=== PATIENT | male | born 1995 | race Two or more races ===

== ENCOUNTER 2020-05-06 20:00 | Emergency (ER) | payer MEDICAID ==
[~2020-05-06] VITALS: Ht 188 cm; Wt 84.1 kg
[2020-05-06] MEDS ORDERED: OLAN2.5T3 PO (22:20)
[2020-05-06] MEDS ORDERED: LITH300T PO (22:20)
[2020-05-06] MEDS ORDERED: LEVE500T53 PO (22:20)
[2020-05-06] MEDS ORDERED: FISH1CAP27 PO (22:20)
[2020-05-06] MEDS ORDERED: MELA5TAB3 PO (22:20)
[2020-05-06] MEDS ORDERED: PROZ10 PO (22:20)
[2020-05-06] MEDS ORDERED: ESCI-8 PO (22:20)
[2020-05-06] MEDS ORDERED: LORA-1000 PO (22:20)
[2020-05-06] MEDS ORDERED: ALBU8HFA IH (22:20)
[2020-05-06] MEDS ORDERED: QUET200T PO (22:20)
[2020-05-06] MEDS ORDERED: VITA1TAB22 PO (22:20)
[2020-05-06] MEDS ORDERED: ARIP10TA8 PO (22:20)
[2020-05-06] MEDS ORDERED: ZINC220C14 PO (22:20)
[2020-05-06] MEDS ORDERED: CLON0.1T83 PO (22:20)
[2020-05-06 23:05] LABS: AMPHET/METH SCREEN,URINE NEGATIVE (NEGATIVE); BARBITURATE SCREEN, URINE NEGATIVE (NEGATIVE); BENZODIAZEPINES SCREEN,URINE NEGATIVE (NEGATIVE); CANNABINOID SCREEN,URINE NEGATIVE (NEGATIVE); COCAINE SCREEN,URINE NEGATIVE (NEGATIVE); METHADONE SCREEN, URINE NEGATIVE (NEGATIVE); OPIATE SCREEN,URINE NEGATIVE (NEGATIVE)
[2020-05-06 23:06] LABS: PHENCYCLIDINE SCREEN,URINE NEGATIVE (NEGATIVE)
[2020-05-06 23:14] LABS: BASOPHILS % (AUTO) 0.4 % (0.0-2.0); EOSINOPHILS % (AUTO) 1.3 % (1.0-6.0); HEMATOCRIT 42.3 % (41-53); HEMOGLOBIN 14.2 g/dL (13.5-17.5); LYMPHOCYTES # (AUTO) 2.6 K/uL (1.0-4.8); LYMPHOCYTES % (AUTO) 29.7 % (22.0-44.0); MEAN CORPUSCULAR HEMOGLOBIN 30.8 pg (26.0-34.0); MEAN CORPUSCULAR HGB CONC 33.6 G/dL (31.0-37.0); MEAN CORPUSCULAR VOLUME 92 fL (80-100); MONOCYTES # (AUTO) 0.6 K/uL (0.1-1.0); MONOCYTES % (AUTO) 7.2 % (2.0-9.0); NEUTROPHILS # (AUTO) 5.4 K/uL (1.8-7.7); NEUTROPHILS % (AUTO) 61.4 % (40.0-70.0); PLATELET COUNT (AUTO) 212 K/uL (150-450); RED BLOOD CELL COUNT(AUTO) 4.62 MIL/uL (4.50-5.90); RED CELL DISTRIBUTION WIDTH 12.8 % (11.5-14.5)
[2020-05-06 23:23] LABS: ANION GAP 9 mmol/L (8-16); CALCIUM, TOTAL 9.2 mg/dL (8.8-10.5); CARBON DIOXIDE 27 mmol/L (22-29); CHLORIDE 104 mmol/L (98-107); GLOMERULAR FILTR. RATE CALC > 60 mL/min (>60); GLUCOSE,RANDOM 98 mg/dL (70-110); POTASSIUM 3.5 mmol/L (3.5-5.1); SODIUM SERUM 140 mmol/L (136-145); UREA NITROGEN, BLOOD 11 mg/dL (7-18)
[2020-05-06 23:30] LABS: ALANINE AMINOTRANSFERASE 39 U/L (12-78); ALBUMIN 3.9 g/dL (3.4-5.0); ALKALINE PHOSPHATASE 56 U/L (46-116); ASPARTATE AMINOTRANSFERASE 18 U/L (15-37); BILIRUBIN,TOTAL 1.4 mg/dL (0.1-1.0); TOTAL PROTEIN, SERUM 6.6 g/dL (6.4-8.2)
[2020-05-07 08:03] VITALS: BP 102/60
== END 2020-05-07 08:08 | disposition home or self-care (01) ==
LOC: EMS 20:03
DX: R62.50 Unspecified lack of expected normal physiological development in childhood (principal); R45.851 Suicidal ideations; Z88.8 Allergy status to other drugs, medicaments and biological substances
CPT/HCPCS: 36415; 80053; 80307; 85025; 99285; G0480

== ENCOUNTER 2021-03-01 12:11 | Inpatient (IN) | payer MEDICARE, MEDICAID ==
[~2021-03-01] VITALS: Ht 188 cm; Wt 106.0 kg
[~2021-03-01 12:11] MED LIST: ALBU8HFA IH; ARIP10TA38 PO; CLON0.1T2 PO; ESCI-8 PO; FISH1CAP27 PO; FLUO10CA24 PO; LEVE500T53 PO; LITH300T PO; LORA-1000 PO; MELA5TAB3 PO; OLAN2.5T3 PO; QUET200T PO; VITA1TAB22 PO; ZINC220C14 PO
[2021-03-01 16:38] LABS: BASOPHILS % (AUTO) 0.7 % (0.0-2.0); EOSINOPHILS % (AUTO) 2.6 % (1.0-6.0); HEMOGLOBIN 14.3 g/dL (13.5-17.5); LYMPHOCYTES # (AUTO) 1.7 K/uL (1.0-4.8); LYMPHOCYTES % (AUTO) 27.9 % (22.0-44.0); MEAN CORPUSCULAR HEMOGLOBIN 30.6 pg (26.0-34.0); MEAN CORPUSCULAR HGB CONC 33.2 G/dL (31.0-37.0); MEAN CORPUSCULAR VOLUME 92 fL (80-100); MONOCYTES # (AUTO) 0.6 K/uL (0.1-1.0); MONOCYTES % (AUTO) 10.2 % (2.0-9.0); NEUTROPHILS # (AUTO) 3.6 K/uL (1.8-7.7); NEUTROPHILS % (AUTO) 58.6 % (40.0-70.0); PLATELET COUNT (AUTO) 247 K/uL (150-450); RED BLOOD CELL COUNT(AUTO) 4.67 MIL/uL (4.50-5.90); RED CELL DISTRIBUTION WIDTH 12.9 % (11.5-14.5)
[2021-03-01 16:40] LABS: ANION GAP 8 mmol/L (8-16); CALCIUM, TOTAL 8.9 mg/dL (8.8-10.5); CARBON DIOXIDE 27 mmol/L (22-29); CHLORIDE 106 mmol/L (98-107); CREATININE 1.04 mg/dL (0.60-1.30); GLOMERULAR FILTR. RATE CALC > 60 mL/min (>60); GLUCOSE,RANDOM 95 mg/dL (70-110); SODIUM SERUM 141 mmol/L (136-145); UREA NITROGEN, BLOOD 8 mg/dL (7-18)
[2021-03-01 16:45] LABS: ALANINE AMINOTRANSFERASE 50 U/L (12-78); ALBUMIN 4.1 g/dL (3.4-5.0); ALKALINE PHOSPHATASE 75 U/L (46-116); ASPARTATE AMINOTRANSFERASE 19 U/L (15-37); BILIRUBIN,TOTAL 0.7 mg/dL (0.1-1.0); TOTAL PROTEIN, SERUM 7.7 g/dL (6.4-8.2)
[2021-03-01] MEDS ORDERED: QUEtiapine FUMARATE 100 MG TABLET PO ONE (16:45)
[2021-03-01 16:56] LABS: LITHIUM 1.08 mmol/L (0.60-1.20)
[2021-03-01] MEDS ORDERED: LORazepam 1 MG TABLET PO ONE (17:00)
[2021-03-01] MEDS ORDERED: DiphenhydrAMINE HCL 50 MG/ML VIAL IM ONE (17:30)
[2021-03-01] MEDS ORDERED: LORazepam 2 MG/ML VIAL IM ONE (17:30)
[2021-03-01] MEDS ORDERED: HALOPERIDOL LACTATE 5 MG/ML VIAL IM ONE (17:30)
[2021-03-01] MEDS ORDERED: PROMETHAZINE HCL 25 MG TABLET PO PRN (17:45)
[2021-03-01] MEDS ORDERED: TUBERCULIN, PURIFIED PROTEIN DERIVATIVE 5 TU/0.1 ML SYRINGE ID ONE (17:45)
[2021-03-01] MEDS ORDERED: ZOLPIDEM TARTRATE 10 MG TABLET PO PRN (17:45)
[2021-03-01] MEDS ORDERED: OLANZapine 5 MG RAPDIS TABLET PO PRN (17:45)
[2021-03-01] MEDS ORDERED: GuaiFENesin/D-METHORPHAN [SUGAR-FREE] 200-20MG/10 ML SYRUP UDCUP PO PRN (17:45)
[2021-03-01 19:50] LABS: COVID AG,FIA SOURCE NASOPHARYNGEAL
[2021-03-01] MEDS ORDERED: LITHIUM CARBONATE 450 MG ER TABLET PO SCH (21:00)
[2021-03-01] MEDS: OLANZapine 5 MG RAPDIS TABLET PO SCH (21:00)
[2021-03-01] MEDS: MELATONIN 5 MG TABLET PO SCH (21:00)
[2021-03-01] MEDS: THIAMINE 100 MG TABLET PO SCH (21:00)
[2021-03-01] MEDS: GuanFACINE HCL 1 MG TABLET PO SCH (21:23)
[2021-03-02 00:13] VITALS: BP 117/74
[2021-03-02] MEDS ORDERED: CloNIDine HCL 0.1 MG TABLET PO PRN (07:00)
[2021-03-02 07:50] LABS: LITHIUM 0.91 mmol/L (0.60-1.20)
[2021-03-02 07:58] LABS: HEMOGLOBIN A1C 4.8 % (3.8-5.6)
[2021-03-02 08:03] LABS: CHOL/HDL RATIO 5.6 (4.2-7.3); FREE T4 (FREE THYROXINE) 0.96 ng/dL (0.76-1.46); THYROID STIMULATING HORMONE 1.83 uIU/mL (0.36-3.74)
[2021-03-02] MEDS: HydrOXYzine PAMOATE 50 MG CAPSULE PO PRN ×2 (08:10→16:45)
[2021-03-02 08:32] VITALS: BP 136/76
[2021-03-02] MEDS: FOLIC ACID 1 MG TABLET PO SCH (08:48)
[2021-03-02] MEDS: GuanFACINE HCL 1 MG TABLET PO SCH ×2 (08:48→12:43)
[2021-03-02] MEDS: THIAMINE 100 MG TABLET PO SCH ×2 (08:48→16:45)
[2021-03-02] MEDS: OMEGA-3/DHA/EPA/FISH OIL 1,000 MG CAPSULE PO SCH (08:48)
[2021-03-02] MEDS: MULTIVITAMINS WITH MINERALS, THERAPEUTIC TABLET PO SCH (08:48)
[2021-03-02] MEDS: ZINC SULFATE 220 MG CAPSULE PO SCH ×2 (08:48→09:00)
[2021-03-02] MEDS: OLANZapine 5 MG RAPDIS TABLET PO SCH ×2 (08:49→12:43)
[2021-03-02] MEDS ORDERED: LevETIRAcetam 500 MG TABLET PO SCH (09:00)
[2021-03-02] MEDS ORDERED: FLUoxetine HCL 20 MG CAPSULE PO SCH (09:00)
[2021-03-02] MEDS ORDERED: QUEtiapine FUMARATE 25 MG TABLET PO PRN (15:15)
[2021-03-02 16:05] VITALS: BP 111/72
[2021-03-02] MEDS: LITHIUM CARBONATE 300 MG CAPSULE PO SCH (16:44)
[2021-03-02] MEDS: ClonazePAM 1 MG TABLET PO SCH (16:44)
[2021-03-02] MEDS: PROPRANOLOL HCL 10 MG TABLET PO SCH (16:44)
[2021-03-02] MEDS: QUEtiapine FUMARATE 100 MG TABLET PO SCH ×2 (16:45→20:34)
[2021-03-02] MEDS: GABAPENTIN 300 MG CAPSULE PO SCH ×2 (16:45→20:34)
[2021-03-02] MEDS ORDERED: LITHIUM CARBONATE 300 MG CAPSULE PO SCH (17:00)
[2021-03-02] MEDS: MELATONIN 5 MG TABLET PO SCH (20:33)
[2021-03-03 05:59] VITALS: BP 125/75
[2021-03-03 08:19] VITALS: BP 142/92
[2021-03-03] MEDS: HydrOXYzine PAMOATE 50 MG CAPSULE PO PRN (08:30)
[2021-03-03] MEDS: MULTIVITAMINS WITH MINERALS, THERAPEUTIC TABLET PO SCH (08:45)
[2021-03-03] MEDS: QUEtiapine FUMARATE 100 MG TABLET PO SCH ×3 (08:45→16:53)
[2021-03-03] MEDS: ZINC SULFATE 220 MG CAPSULE PO SCH (08:45)
[2021-03-03] MEDS: LITHIUM CARBONATE 300 MG CAPSULE PO SCH ×2 (08:45→16:56)
[2021-03-03] MEDS: OMEGA-3/DHA/EPA/FISH OIL 1,000 MG CAPSULE PO SCH (08:45)
[2021-03-03] MEDS: ClonazePAM 1 MG TABLET PO SCH ×3 (08:45→16:50)
[2021-03-03] MEDS: FOLIC ACID 1 MG TABLET PO SCH (08:45)
[2021-03-03] MEDS: THIAMINE 100 MG TABLET PO SCH ×2 (08:45→16:51)
[2021-03-03] MEDS: PROPRANOLOL HCL 10 MG TABLET PO SCH ×3 (08:45→16:54)
[2021-03-03] MEDS: GABAPENTIN 300 MG CAPSULE PO SCH ×4 (08:45→20:28)
[2021-03-03 16:16] VITALS: BP 105/75
[2021-03-03] MEDS: OXcarbazepine 300 MG TABLET PO SCH (16:54)
[2021-03-03] MEDS: MELATONIN 5 MG TABLET PO SCH (20:28)
[2021-03-04 06:09] VITALS: BP 109/54
[2021-03-04] MEDS: THIAMINE 100 MG TABLET PO SCH ×2 (08:29→16:15)
[2021-03-04] MEDS: MULTIVITAMINS WITH MINERALS, THERAPEUTIC TABLET PO SCH (08:29)
[2021-03-04] MEDS: OXcarbazepine 300 MG TABLET PO SCH ×3 (08:30→16:16)
[2021-03-04] MEDS: OMEGA-3/DHA/EPA/FISH OIL 1,000 MG CAPSULE PO SCH (08:31)
[2021-03-04] MEDS: LITHIUM CARBONATE 300 MG CAPSULE PO SCH ×2 (08:31→16:15)
[2021-03-04] MEDS: ClonazePAM 1 MG TABLET PO SCH ×3 (08:31→16:15)
[2021-03-04] MEDS: PROPRANOLOL HCL 10 MG TABLET PO SCH ×3 (08:31→16:15)
[2021-03-04] MEDS: FOLIC ACID 1 MG TABLET PO SCH (08:32)
[2021-03-04] MEDS: GABAPENTIN 300 MG CAPSULE PO SCH ×4 (08:32→20:01)
[2021-03-04] MEDS: QUEtiapine FUMARATE 100 MG TABLET PO SCH ×2 (08:33→12:34)
[2021-03-04 08:58] VITALS: BP 109/60
[2021-03-04] MEDS: ZINC SULFATE 220 MG CAPSULE PO SCH (09:50)
[2021-03-04 16:06] VITALS: BP 109/63
[2021-03-04] MEDS: QUEtiapine FUMARATE 200 MG TABLET PO SCH (16:17)
[2021-03-04] MEDS: MELATONIN 5 MG TABLET PO SCH (20:01)
[2021-03-05 05:38] VITALS: BP 130/80
[2021-03-05] MEDS ORDERED: GABA-1181 PO (06:42)
[2021-03-05] MEDS ORDERED: CLON-595 PO (06:42)
[2021-03-05] MEDS ORDERED: MELA5TAB3 PO (06:43)
[2021-03-05] MEDS ORDERED: QUET200T30 PO (06:43)
[2021-03-05] MEDS ORDERED: OMEG-135 PO (06:43)
[2021-03-05] MEDS ORDERED: OXCA300T57 PO (06:43)
[2021-03-05] MEDS ORDERED: LITH300C3 PO (06:43)
[2021-03-05] MEDS ORDERED: PROP10TA72 PO (06:43)
[2021-03-05] MEDS: HydrOXYzine PAMOATE 50 MG CAPSULE PO PRN (08:30)
[2021-03-05] MEDS: QUEtiapine FUMARATE 200 MG TABLET PO SCH ×2 (08:36→12:45)
[2021-03-05] MEDS: FOLIC ACID 1 MG TABLET PO SCH (08:36)
[2021-03-05] MEDS: ClonazePAM 1 MG TABLET PO SCH ×2 (08:36→12:45)
[2021-03-05] MEDS: GABAPENTIN 300 MG CAPSULE PO SCH ×2 (08:36→12:45)
[2021-03-05] MEDS: OMEGA-3/DHA/EPA/FISH OIL 1,000 MG CAPSULE PO SCH (08:36)
[2021-03-05] MEDS: MULTIVITAMINS WITH MINERALS, THERAPEUTIC TABLET PO SCH (08:36)
[2021-03-05] MEDS: LITHIUM CARBONATE 300 MG CAPSULE PO SCH (08:36)
[2021-03-05] MEDS: OXcarbazepine 300 MG TABLET PO SCH (08:36)
[2021-03-05] MEDS: PROPRANOLOL HCL 10 MG TABLET PO SCH ×2 (08:36→12:45)
[2021-03-05] MEDS: THIAMINE 100 MG TABLET PO SCH (08:37)
[2021-03-05] MEDS: ZINC SULFATE 220 MG CAPSULE PO SCH (08:37)
[2021-03-05 08:59] VITALS: BP 106/61
== END 2021-03-05 14:12 | disposition home or self-care (01) | DRG 885 ==
LOC: EMS 12:11 → B3A 17:42
PROVIDERS: ADMIT Psychiatry & Neurology Psychiatry; ATTEND Psychiatry & Neurology Psychiatry
DX: F31.4 Bipolar disorder, current episode depressed, severe, without psychotic features (principal); R45.851 Suicidal ideations; F84.0 Autistic disorder; Z20.822 Contact with and (suspected) exposure to COVID-19; G47.00 Insomnia, unspecified; K59.00 Constipation, unspecified; E66.9 Obesity, unspecified; E78.5 Hyperlipidemia, unspecified; F90.9 Attention-deficit hyperactivity disorder, unspecified type
CPT/HCPCS: 80053; 80061; 80178; 83036; 84439; 84443; 85025; 86592; 99291; A9575; G0480; J1200; J1630; J2060

== ENCOUNTER 2021-03-07 14:05 | Emergency (ER) | payer MEDICARE, MEDICAID ==
[~2021-03-07] VITALS: Ht 188 cm; Wt 81.8 kg
[~2021-03-07 14:05] MED LIST changes: -ALBU8HFA IH; -ARIP10TA38 PO; +CLON-595 PO; -CLON0.1T2 PO; -ESCI-8 PO; -FISH1CAP27 PO; -FLUO10CA24 PO; +GABA-1181 PO; +LITH300C3 PO; -LITH300T PO; -LORA-1000 PO; -OLAN2.5T3 PO; +OMEG-135 PO; +OXCA300T57 PO; +PROP10TA72 PO; +QUET200T30 PO; -VITA1TAB22 PO; -ZINC220C14 PO
[2021-03-07 14:06] VITALS: BP 109/58
== END 2021-03-07 15:38 | disposition home or self-care (01) ==
LOC: EMS 14:05
DX: S30.812A Abrasion of penis, initial encounter (principal); F84.0 Autistic disorder; Z88.8 Allergy status to other drugs, medicaments and biological substances; Z79.899 Other long term (current) drug therapy; X58.XXXA Exposure to other specified factors, initial encounter; Y93.89 Activity, other specified; Y92.89 Other specified places as the place of occurrence of the external cause; Y99.8 Other external cause status
CPT/HCPCS: 99281; Z7502

== ENCOUNTER 2021-03-07 18:42 | Emergency (ER) | payer MEDICARE, MEDICAID ==
[~2021-03-07] VITALS: Ht 188 cm; Wt 81.8 kg
[2021-03-07 18:44] VITALS: BP 126/84
== END 2021-03-07 22:25 | disposition left against medical advice (07) ==
LOC: EMS 18:48
DX: F98.9 Unspecified behavioral and emotional disorders with onset usually occurring in childhood and adolescence (principal); F84.0 Autistic disorder; Z88.8 Allergy status to other drugs, medicaments and biological substances; Z79.899 Other long term (current) drug therapy
CPT/HCPCS: 99281; Z7502

== ENCOUNTER 2021-03-15 14:36 | Emergency (ER) | payer MEDICARE, MEDICAID ==
[~2021-03-15] VITALS: Ht 188 cm; Wt 93.2 kg
[2021-03-15 16:56] LABS: AMPHET/METH SCREEN,URINE NEGATIVE (NEGATIVE); BARBITURATE SCREEN, URINE NEGATIVE (NEGATIVE); BENZODIAZEPINES SCREEN,URINE NEGATIVE (NEGATIVE); CANNABINOID SCREEN,URINE NEGATIVE (NEGATIVE); COCAINE SCREEN,URINE NEGATIVE (NEGATIVE); METHADONE SCREEN, URINE NEGATIVE (NEGATIVE); OPIATE SCREEN,URINE NEGATIVE (NEGATIVE)
[2021-03-15 16:58] LABS: PHENCYCLIDINE SCREEN,URINE NEGATIVE (NEGATIVE)
[2021-03-15] MEDS ORDERED: QUEtiapine FUMARATE 100 MG TABLET PO ONE (17:00)
[2021-03-15] MEDS ORDERED: LORazepam 2 MG TABLET PO ONE (17:00)
[2021-03-15 17:02] LABS: BASOPHILS % (AUTO) 0.8 % (0.0-2.0); HEMATOCRIT 45.9 % (41-53); HEMOGLOBIN 15.2 g/dL (13.5-17.5); LYMPHOCYTES # (AUTO) 1.5 K/uL (1.0-4.8); LYMPHOCYTES % (AUTO) 29.7 % (22.0-44.0); MEAN CORPUSCULAR HEMOGLOBIN 30.5 pg (26.0-34.0); MEAN CORPUSCULAR VOLUME 93 fL (80-100); MONOCYTES # (AUTO) 0.5 K/uL (0.1-1.0); MONOCYTES % (AUTO) 8.7 % (2.0-9.0); NEUTROPHILS # (AUTO) 3.1 K/uL (1.8-7.7); NEUTROPHILS % (AUTO) 58.8 % (40.0-70.0); PLATELET COUNT (AUTO) 245 K/uL (150-450); RED BLOOD CELL COUNT(AUTO) 4.96 MIL/uL (4.50-5.90)
[2021-03-15 17:15] LABS: ANION GAP 9 mmol/L (8-16); CALCIUM, TOTAL 9.4 mg/dL (8.8-10.5); CARBON DIOXIDE 28 mmol/L (22-29); CHLORIDE 105 mmol/L (98-107); CREATININE 0.78 mg/dL (0.60-1.30); GLOMERULAR FILTR. RATE CALC > 60 mL/min (>60); GLUCOSE,RANDOM 95 mg/dL (70-110); POTASSIUM 4.3 mmol/L (3.5-5.1); SODIUM SERUM 142 mmol/L (136-145); UREA NITROGEN, BLOOD 7 mg/dL (7-18)
[2021-03-15 17:16] LABS: LITHIUM 0.49 mmol/L (0.60-1.20)
[2021-03-15 17:22] LABS: ALANINE AMINOTRANSFERASE 58 U/L (12-78); ALBUMIN 4.4 g/dL (3.4-5.0); ALKALINE PHOSPHATASE 81 U/L (46-116); ASPARTATE AMINOTRANSFERASE 26 U/L (15-37); BILIRUBIN,TOTAL 0.8 mg/dL (0.1-1.0); TOTAL PROTEIN, SERUM 8.2 g/dL (6.4-8.2)
[2021-03-15 17:51] LABS: COVID AG,FIA SOURCE NASOPHARYNGEAL
[2021-03-15 19:45] VITALS: BP 129/68
== END 2021-03-15 20:35 | disposition home or self-care (01) ==
LOC: EMS 14:36
DX: F43.0 Acute stress reaction (principal); F84.0 Autistic disorder; F41.9 Anxiety disorder, unspecified; F32.9 Major depressive disorder, single episode, unspecified; Z20.822 Contact with and (suspected) exposure to COVID-19
CPT/HCPCS: 36415; 80053; 80178; 80307; 85025; 87426; 99283; G0480

== ENCOUNTER 2021-05-31 14:17 | Inpatient (IN) | payer MEDICARE, MEDICAID ==
[~2021-05-31] VITALS: Ht 188 cm; Wt 106.8 kg
[~2021-05-31 14:17] MED LIST changes: +LEVE500T20 PO; -LEVE500T53 PO; -MELA5TAB3 PO; +MELA5TAB40 PO
[2021-05-31] MEDS ORDERED: DiphenhydrAMINE HCL 50 MG/ML VIAL IM ONE (14:45)
[2021-05-31] MEDS ORDERED: HALOPERIDOL LACTATE 5 MG/ML VIAL IM ONE (14:45)
[2021-05-31] MEDS ORDERED: LORazepam 2 MG/ML VIAL IM ONE (14:45)
[2021-05-31 15:10] LABS: BASOPHILS % (AUTO) 0.4 % (0.0-2.0); EOSINOPHILS % (AUTO) 1.3 % (1.0-6.0); HEMOGLOBIN 14.1 g/dL (13.5-17.5); LYMPHOCYTES # (AUTO) 1.4 K/uL (1.0-4.8); LYMPHOCYTES % (AUTO) 18.5 % (22.0-44.0); MEAN CORPUSCULAR HGB CONC 33.5 G/dL (31.0-37.0); MEAN CORPUSCULAR VOLUME 90 fL (80-100); MONOCYTES # (AUTO) 0.7 K/uL (0.1-1.0); MONOCYTES % (AUTO) 8.6 % (2.0-9.0); NEUTROPHILS # (AUTO) 5.4 K/uL (1.8-7.7); NEUTROPHILS % (AUTO) 71.2 % (40.0-70.0); PLATELET COUNT (AUTO) 233 K/uL (150-450); RED BLOOD CELL COUNT(AUTO) 4.69 MIL/uL (4.50-5.90); RED CELL DISTRIBUTION WIDTH 13.1 % (11.5-14.5)
[2021-05-31 15:13] LABS: ANION GAP 10 mmol/L (8-16); CALCIUM, TOTAL 9.4 mg/dL (8.8-10.5); CARBON DIOXIDE 28 mmol/L (22-29); CHLORIDE 105 mmol/L (98-107); CREATININE 1.06 mg/dL (0.60-1.30); GLOMERULAR FILTR. RATE CALC > 60 mL/min (>60); GLUCOSE,RANDOM 95 mg/dL (70-110); POTASSIUM 3.7 mmol/L (3.5-5.1); SODIUM SERUM 143 mmol/L (136-145); UREA NITROGEN, BLOOD 12 mg/dL (7-18)
[2021-05-31 15:19] LABS: LITHIUM 0.48 mmol/L (0.60-1.20)
[2021-05-31 15:20] LABS: ALANINE AMINOTRANSFERASE 49 U/L (12-78); ALBUMIN 4.1 g/dL (3.4-5.0); ALKALINE PHOSPHATASE 73 U/L (46-116); ASPARTATE AMINOTRANSFERASE 22 U/L (15-37); BILIRUBIN,TOTAL 1.1 mg/dL (0.1-1.0); TOTAL PROTEIN, SERUM 7.7 g/dL (6.4-8.2)
[2021-05-31 15:58] LABS: COVID AG,FIA SOURCE NASOPHARYNGEAL
[2021-05-31 17:28] LABS: AMPHET/METH SCREEN,URINE NEGATIVE (NEGATIVE); BARBITURATE SCREEN, URINE NEGATIVE (NEGATIVE); BENZODIAZEPINES SCREEN,URINE NEGATIVE (NEGATIVE); CANNABINOID SCREEN,URINE NEGATIVE (NEGATIVE); COCAINE SCREEN,URINE NEGATIVE (NEGATIVE); METHADONE SCREEN, URINE NEGATIVE (NEGATIVE); OPIATE SCREEN,URINE NEGATIVE (NEGATIVE)
[2021-05-31 17:35] LABS: PHENCYCLIDINE SCREEN,URINE NEGATIVE (NEGATIVE)
[2021-05-31] MEDS ORDERED: CLON-595 PO (18:24)
[2021-05-31] MEDS ORDERED: OXCA300T57 PO (18:24)
[2021-05-31] MEDS ORDERED: GABA-1181 PO (18:24)
[2021-05-31] MEDS ORDERED: BENZ0.5T44 PO (18:24)
[2021-05-31] MEDS ORDERED: LITH300T PO (18:24)
[2021-05-31] MEDS ORDERED: PALI39DI IM (18:24)
[2021-05-31] MEDS ORDERED: MELA5TAB40 PO (18:24)
[2021-05-31] MEDS ORDERED: HALOPERIDOL 5 MG TABLET PO PRN (20:15)
[2021-05-31 21:57] VITALS: BP 108/68
[2021-05-31] MEDS: LORazepam 2 MG TABLET PO PRN (22:53)
[2021-05-31] MEDS: ZOLPIDEM TARTRATE 10 MG TABLET PO PRN (22:53)
[2021-05-31] MEDS ORDERED: INFLUENZA VIRUS VACCINE QVS 2021-22 (6MO+)/PF 60 MCG/0.5 ML SYRINGE IM. ONE (23:45)
[2021-05-31] MEDS ORDERED: PNEUMOCOCCAL VACCINE POLYVALENT 0.5 ML VIAL [PPSV23] IM. ONE (23:45)
[2021-06-01 00:18] VITALS: BP 110/70
[2021-06-01 07:37] LABS: CHOL/HDL RATIO 5.1 (4.2-7.3)
[2021-06-01] MEDS: LITHIUM CARBONATE 300 MG CAPSULE PO SCH ×2 (09:40→16:51)
[2021-06-01 13:10] VITALS: BP 127/65
[2021-06-01] MEDS: LORazepam 2 MG TABLET PO PRN (13:48)
[2021-06-01 16:16] VITALS: BP 130/76
[2021-06-01] MEDS ORDERED: IBUPROFEN 600 MG TABLET PO PRN (18:45)
[2021-06-01] MEDS ORDERED: ONDANSETRON HCL 4 MG TABLET PO PRN (18:45)
[2021-06-01] MEDS ORDERED: BACITRACIN 28 GM OINTMENT TP PRN (18:45)
[2021-06-01] MEDS ORDERED: BENZOCAINE/MENTHOL LOZENGE PO PRN (18:45)
[2021-06-01] MEDS ORDERED: MAGNESIUM HYDROXIDE SUSPENSION 30 ML UDCUP PO PRN (18:45)
[2021-06-01] MEDS ORDERED: ALBUTEROL SULFATE HFA 90 MCG/PUFF 8 GM INHALER IH PRN (18:45)
[2021-06-01] MEDS ORDERED: ACETAMINOPHEN 325 MG TABLET PO PRN (18:45)
[2021-06-01] MEDS ORDERED: MAG HYDROX/AL HYDROX/SIMETH ES 30 ML SUSPENSION UDCUP PO PRN (18:45)
[2021-06-01] MEDS ORDERED: OMEPRAZOLE 20 MG CAPSULE PO PRN (18:45)
[2021-06-01] MEDS ORDERED: DOCUSATE SODIUM 100 MG CAPSULE PO PRN (18:45)
[2021-06-01] MEDS ORDERED: CloNIDine HCL 0.1 MG TABLET PO PRN (18:45)
[2021-06-01] MEDS ORDERED: PETROLATUM,WHITE 28 GM JELLY TP PRN (18:45)
[2021-06-01] MEDS ORDERED: LOPERAMIDE HCL 2 MG CAPSULE PO PRN (18:45)
[2021-06-01] MEDS: OXcarbazepine 300 MG TABLET PO SCH (19:10)
[2021-06-01] MEDS: LevETIRAcetam 500 MG TABLET PO SCH (19:10)
[2021-06-01] MEDS: GABAPENTIN 300 MG CAPSULE PO SCH (20:40)
[2021-06-01] MEDS: MELATONIN 5 MG TABLET PO SCH (20:41)
[2021-06-02 00:28] VITALS: BP 108/64
[2021-06-02 08:19] VITALS: BP 132/79
[2021-06-02] MEDS: PROPRANOLOL HCL 10 MG TABLET PO SCH ×3 (08:28→16:30)
[2021-06-02] MEDS: OMEGA-3/DHA/EPA/FISH OIL 1,000 MG CAPSULE PO SCH (08:29)
[2021-06-02] MEDS: OXcarbazepine 300 MG TABLET PO SCH ×2 (08:29→16:31)
[2021-06-02] MEDS: GABAPENTIN 300 MG CAPSULE PO SCH ×4 (08:29→20:54)
[2021-06-02] MEDS: LevETIRAcetam 500 MG TABLET PO SCH ×2 (08:30→16:29)
[2021-06-02] MEDS: LITHIUM CARBONATE 300 MG CAPSULE PO SCH ×2 (08:30→16:30)
[2021-06-02 16:21] VITALS: BP 102/61
[2021-06-02] MEDS: LORazepam 2 MG TABLET PO PRN (16:31)
[2021-06-02] MEDS: MELATONIN 5 MG TABLET PO SCH (20:54)
[2021-06-03 00:34] VITALS: BP 125/72
[2021-06-03] MEDS: OMEGA-3/DHA/EPA/FISH OIL 1,000 MG CAPSULE PO SCH (08:16)
[2021-06-03] MEDS: LITHIUM CARBONATE 300 MG CAPSULE PO SCH ×2 (08:17→17:04)
[2021-06-03] MEDS: PROPRANOLOL HCL 10 MG TABLET PO SCH ×3 (08:17→17:04)
[2021-06-03] MEDS: GABAPENTIN 300 MG CAPSULE PO SCH ×4 (08:17→20:46)
[2021-06-03 08:22] VITALS: BP 112/60
[2021-06-03 16:33] VITALS: BP 114/70
[2021-06-03] MEDS: LORazepam 2 MG TABLET PO PRN (17:04)
[2021-06-03] MEDS: MELATONIN 5 MG TABLET PO SCH (20:46)
[2021-06-04 08:32] VITALS: BP 121/79
[2021-06-04] MEDS: PROPRANOLOL HCL 10 MG TABLET PO SCH ×3 (09:21→16:13)
[2021-06-04] MEDS: GABAPENTIN 300 MG CAPSULE PO SCH ×4 (09:21→20:44)
[2021-06-04] MEDS: LITHIUM CARBONATE 300 MG CAPSULE PO SCH ×2 (09:25→16:10)
[2021-06-04] MEDS: OMEGA-3/DHA/EPA/FISH OIL 1,000 MG CAPSULE PO SCH (09:41)
[2021-06-04 16:11] VITALS: BP 123/74
[2021-06-04] MEDS: BENZTROPINE MESYLATE 1 MG TABLET PO SCH (16:13)
[2021-06-04 18:07] VITALS: BP 123/74
[2021-06-04] MEDS: MELATONIN 5 MG TABLET PO SCH (20:44)
[2021-06-05] MEDS: LITHIUM CARBONATE 300 MG CAPSULE PO SCH ×2 (08:06→16:30)
[2021-06-05] MEDS: BENZTROPINE MESYLATE 1 MG TABLET PO SCH ×2 (08:06→16:30)
[2021-06-05] MEDS: GABAPENTIN 300 MG CAPSULE PO SCH ×4 (08:06→20:41)
[2021-06-05] MEDS: OMEGA-3/DHA/EPA/FISH OIL 1,000 MG CAPSULE PO SCH (08:06)
[2021-06-05] MEDS: PROPRANOLOL HCL 10 MG TABLET PO SCH ×3 (08:06→16:30)
[2021-06-05 08:22] VITALS: BP 139/89
[2021-06-05] MEDS ORDERED: OMEGA-3/DHA/EPA/FISH OIL 1,000 MG CAPSULE PO SCH (09:00)
[2021-06-05] MEDS: LORazepam 2 MG TABLET PO PRN (16:30)
[2021-06-05 16:33] VITALS: BP 126/76
[2021-06-05] MEDS: MELATONIN 5 MG TABLET PO SCH (20:41)
[2021-06-06] MEDS: ZOLPIDEM TARTRATE 10 MG TABLET PO PRN (00:03)
[2021-06-06 00:14] VITALS: BP 110/72
[2021-06-06] MEDS: BENZTROPINE MESYLATE 1 MG TABLET PO SCH (08:14)
[2021-06-06] MEDS: LITHIUM CARBONATE 300 MG CAPSULE PO SCH (08:14)
[2021-06-06] MEDS: PROPRANOLOL HCL 10 MG TABLET PO SCH ×2 (08:14→12:23)
[2021-06-06] MEDS: GABAPENTIN 300 MG CAPSULE PO SCH ×2 (08:14→12:23)
[2021-06-06] MEDS: OMEGA-3/DHA/EPA/FISH OIL 1,000 MG CAPSULE PO SCH (08:15)
[2021-06-06] MEDS: LORazepam 2 MG TABLET PO PRN (08:16)
[2021-06-06 08:24] VITALS: BP 114/73
[2021-06-06] MEDS ORDERED: BENZ1TAB10 PO (11:58)
[2021-06-06] MEDS ORDERED: LITH300C3 PO (11:58)
[2021-06-06] MEDS ORDERED: MELA5TAB40 PO (11:59)
[2021-06-06] MEDS ORDERED: PALI234D IM ×2 (11:59→12:03)
[2021-06-06] MEDS ORDERED: GABA-1181 PO (12:01)
[2021-06-06] MEDS ORDERED: PROP10TA73 PO (12:01)
[2021-06-06 22:39] LABS: GLUCOMETER DEV NAME(LOC) POC.BV
[2021-06-12] MEDS ORDERED: PALIPERIDONE PALMITATE 234 MG/1.5 ML SYRINGE IM SCH (09:00)
== END 2021-06-06 14:30 | disposition home or self-care (01) | DRG 885 ==
LOC: EMS 14:19 → B3A 20:35
PROVIDERS: ADMIT Psychiatry & Neurology Psychiatry; ATTEND Psychiatry & Neurology Psychiatry
DX: F25.9 Schizoaffective disorder, unspecified (principal); R45.851 Suicidal ideations; F31.9 Bipolar disorder, unspecified; F41.9 Anxiety disorder, unspecified; F84.0 Autistic disorder; E78.5 Hyperlipidemia, unspecified; G40.909 Epilepsy, unspecified, not intractable, without status epilepticus; G47.00 Insomnia, unspecified; I10 Essential (primary) hypertension; K59.00 Constipation, unspecified; R45.850 Homicidal ideations; Z20.822 Contact with and (suspected) exposure to COVID-19; F90.9 Attention-deficit hyperactivity disorder, unspecified type; Z88.8 Allergy status to other drugs, medicaments and biological substances
CPT/HCPCS: 80053; 80061; 80178; 85025; 99291; G0480; J1200; J1630; J2060; Q9967

== ENCOUNTER 2021-06-15 19:02 | Emergency (ER) | payer MEDICARE, MEDICAID ==
[~2021-06-15] VITALS: Ht 193 cm; Wt 100.0 kg
[~2021-06-15 19:02] MED LIST changes: +BENZ1TAB10 PO; -CLON-595 PO; -LEVE500T20 PO; -OMEG-135 PO; -OXCA300T57 PO; +PALI234D IM; -PROP10TA72 PO; +PROP10TA73 PO; -QUET200T PO; -QUET200T30 PO
[2021-06-15 19:43] LABS: BASOPHILS % (AUTO) 0.9 % (0.0-2.0); EOSINOPHILS % (AUTO) 1.2 % (1.0-6.0); HEMOGLOBIN 13.6 g/dL (13.5-17.5); LYMPHOCYTES # (AUTO) 1.8 K/uL (1.0-4.8); LYMPHOCYTES % (AUTO) 26.5 % (22.0-44.0); MEAN CORPUSCULAR HEMOGLOBIN 29.8 pg (26.0-34.0); MEAN CORPUSCULAR HGB CONC 33.1 G/dL (31.0-37.0); MEAN CORPUSCULAR VOLUME 90 fL (80-100); MONOCYTES # (AUTO) 0.7 K/uL (0.1-1.0); MONOCYTES % (AUTO) 10.2 % (2.0-9.0); NEUTROPHILS # (AUTO) 4.2 K/uL (1.8-7.7); NEUTROPHILS % (AUTO) 61.2 % (40.0-70.0); PLATELET COUNT (AUTO) 241 K/uL (150-450); RED BLOOD CELL COUNT(AUTO) 4.55 MIL/uL (4.50-5.90); RED CELL DISTRIBUTION WIDTH 13.1 % (11.5-14.5)
[2021-06-15 19:51] LABS: ANION GAP 4 mmol/L (8-16); CALCIUM, TOTAL 9.1 mg/dL (8.8-10.5); CARBON DIOXIDE 29 mmol/L (22-29); CHLORIDE 107 mmol/L (98-107); CREATININE 0.96 mg/dL (0.60-1.30); GLOMERULAR FILTR. RATE CALC > 60 mL/min (>60); GLUCOSE,RANDOM 98 mg/dL (70-110); SODIUM SERUM 140 mmol/L (136-145); UREA NITROGEN, BLOOD 10 mg/dL (7-18)
[2021-06-15 19:58] LABS: ALANINE AMINOTRANSFERASE 80 U/L (12-78); ALKALINE PHOSPHATASE 68 U/L (46-116); ASPARTATE AMINOTRANSFERASE 25 U/L (15-37); BILIRUBIN,TOTAL 0.5 mg/dL (0.1-1.0); CREATINE KINASE, TOTAL ONLY 170 U/L (39-308); LIPASE 169 U/L (73-393); TOTAL PROTEIN, SERUM 7.7 g/dL (6.4-8.2)
[2021-06-15] MEDS ORDERED: LORazepam 2 MG/ML VIAL IM ONE (20:30)
[2021-06-15 21:30] VITALS: BP 118/64
== END 2021-06-15 21:50 | disposition home or self-care (01) ==
LOC: EMS 19:06
DX: F43.0 Acute stress reaction (principal); F84.0 Autistic disorder; F41.9 Anxiety disorder, unspecified; F20.9 Schizophrenia, unspecified; F31.9 Bipolar disorder, unspecified; Z88.8 Allergy status to other drugs, medicaments and biological substances; Z79.899 Other long term (current) drug therapy
CPT/HCPCS: 36415; 71045; 80053; 82550; 83690; 84484; 85025; 93005; 96372; 99285; J2060

== ENCOUNTER 2022-09-29 12:18 | Inpatient (IN) | payer MEDICARE, MEDICAID ==
[~2022-09-29] VITALS: Ht 188 cm; Wt 100.3 kg
[~2022-09-29 12:18] MED LIST changes: -BENZ1TAB10 PO; +BENZ1TAB96 PO
[2022-09-29 13:11] LABS: BASOPHILS % (AUTO) 0.5 % (0.0-2.0); EOSINOPHILS % (AUTO) 1.5 % (1.0-6.0); HEMATOCRIT 42.9 % (41-53); HEMOGLOBIN 14.6 g/dL (13.5-17.5); LYMPHOCYTES # (AUTO) 1.7 K/uL (1.0-4.8); LYMPHOCYTES % (AUTO) 27.7 % (22.0-44.0); MEAN CORPUSCULAR HEMOGLOBIN 30.8 pg (26.0-34.0); MEAN CORPUSCULAR HGB CONC 33.9 G/dL (31.0-37.0); MEAN CORPUSCULAR VOLUME 91 fL (80-100); MONOCYTES # (AUTO) 0.5 K/uL (0.1-1.0); MONOCYTES % (AUTO) 7.6 % (2.0-9.0); NEUTROPHILS # (AUTO) 3.9 K/uL (1.8-7.7); NEUTROPHILS % (AUTO) 62.7 % (40.0-70.0); PLATELET COUNT (AUTO) 242 K/uL (150-450); RED BLOOD CELL COUNT(AUTO) 4.72 MIL/uL (4.50-5.90); RED CELL DISTRIBUTION WIDTH 12.9 % (11.5-14.5)
[2022-09-29 13:25] LABS: ANION GAP 5 mmol/L (8-16); CALCIUM, TOTAL 9.7 mg/dL (8.8-10.5); CARBON DIOXIDE 30 mmol/L (22-29); CHLORIDE 104 mmol/L (98-107); CREATININE 0.93 mg/dL (0.60-1.30); GLOMERULAR FILTR. RATE CALC > 60 mL/min (>60); GLUCOSE,RANDOM 88 mg/dL (70-110); POTASSIUM 4.1 mmol/L (3.5-5.1); SODIUM SERUM 139 mmol/L (136-145); UREA NITROGEN, BLOOD 10 mg/dL (7-18)
[2022-09-29 13:31] LABS: ALANINE AMINOTRANSFERASE 36 U/L (12-78); ALBUMIN 4.5 g/dL (3.4-5.0); ALKALINE PHOSPHATASE 77 U/L (46-116); ASPARTATE AMINOTRANSFERASE 22 U/L (15-37); BILIRUBIN,TOTAL 1.1 mg/dL (0.1-1.0); TOTAL PROTEIN, SERUM 8.1 g/dL (6.4-8.2)
[2022-09-29] MEDS ORDERED: GABAPENTIN 300 MG CAPSULE PO ONE (16:15)
[2022-09-29 16:29] LABS: LITHIUM 0.67 mmol/L (0.60-1.20)
[2022-09-29] MEDS ORDERED: VITA-328 PO (16:33)
[2022-09-29] MEDS ORDERED: TRAZ-252 PO (16:33)
[2022-09-29] MEDS ORDERED: CLON-595 PO (16:33)
[2022-09-29 17:33] LABS: COVID AG,FIA SOURCE NASAL SWAB
[2022-09-29] MEDS ORDERED: ClonazePAM 1 MG TABLET PO ONE (17:45)
[2022-09-29] MEDS ORDERED: HALOPERIDOL 5 MG TABLET PO PRN (18:45)
[2022-09-29] MEDS ORDERED: LORazepam 2 MG TABLET PO PRN (18:45)
[2022-09-29] MEDS ORDERED: ZOLPIDEM TARTRATE 10 MG TABLET PO PRN (18:45)
[2022-09-29 21:54] VITALS: BP 120/55
[2022-09-29] MEDS ORDERED: INFLUENZA VIRUS VACCINE QVS 2022-23 (6MO+)/PF 60 MCG/0.5 ML SYRINGE IM. ONE (22:00)
[2022-09-29] MEDS ORDERED: PNEUMOCOCCAL VACCINE POLYVALENT 0.5 ML VIAL [PPSV23] IM. ONE (22:00)
[2022-09-29] MEDS: GABAPENTIN 300 MG CAPSULE PO SCH (22:20)
[2022-09-29] MEDS: LITHIUM CARBONATE 300 MG CAPSULE PO SCH (22:20)
[2022-09-29] MEDS: BENZTROPINE MESYLATE 1 MG TABLET PO SCH (22:21)
[2022-09-29] MEDS: TraZODone HCL 50 MG TABLET PO SCH (22:21)
[2022-09-29] MEDS: PROPRANOLOL HCL 10 MG TABLET PO SCH (22:21)
[2022-09-30] MEDS ORDERED: MAGNESIUM HYDROXIDE SUSPENSION 30 ML UDCUP PO PRN (04:45)
[2022-09-30] MEDS ORDERED: ACETAMINOPHEN 325 MG TABLET PO PRN (04:45)
[2022-09-30] MEDS ORDERED: MAG HYDROX/AL HYDROX/SIMETH ES 30 ML SUSPENSION UDCUP PO PRN (04:45)
[2022-09-30] MEDS ORDERED: CloNIDine HCL 0.1 MG TABLET PO PRN (04:45)
[2022-09-30] MEDS ORDERED: PETROLATUM,WHITE 28 GM JELLY TP PRN (04:45)
[2022-09-30] MEDS ORDERED: BENZOCAINE/MENTHOL LOZENGE PO PRN (04:45)
[2022-09-30] MEDS ORDERED: DOCUSATE SODIUM 100 MG CAPSULE PO PRN (04:45)
[2022-09-30] MEDS ORDERED: OMEPRAZOLE 20 MG CAPSULE PO PRN (04:45)
[2022-09-30] MEDS ORDERED: BACITRACIN 28 GM OINTMENT TP PRN (04:45)
[2022-09-30] MEDS ORDERED: IBUPROFEN 600 MG TABLET PO PRN (04:45)
[2022-09-30] MEDS ORDERED: LOPERAMIDE HCL 2 MG CAPSULE PO PRN (04:45)
[2022-09-30] MEDS ORDERED: ONDANSETRON HCL 4 MG TABLET PO PRN (04:45)
[2022-09-30] MEDS ORDERED: ALBUTEROL SULFATE HFA 90 MCG/PUFF 8 GM INHALER IH PRN (04:45)
[2022-09-30 08:15] VITALS: BP 119/70
[2022-09-30] MEDS: PROPRANOLOL HCL 10 MG TABLET PO SCH ×3 (08:19→16:03)
[2022-09-30] MEDS: GABAPENTIN 300 MG CAPSULE PO SCH ×4 (08:19→20:05)
[2022-09-30] MEDS: BENZTROPINE MESYLATE 1 MG TABLET PO SCH ×2 (08:19→16:03)
[2022-09-30 16:00] VITALS: BP 111/68
[2022-09-30 20:05] VITALS: BP 112/68
[2022-09-30] MEDS: LITHIUM CARBONATE 300 MG CAPSULE PO SCH (20:05)
[2022-09-30] MEDS: TraZODone HCL 50 MG TABLET PO SCH (20:05)
[2022-10-01 08:01] VITALS: BP 108/68
[2022-10-01] MEDS: BENZTROPINE MESYLATE 1 MG TABLET PO SCH ×2 (08:12→16:56)
[2022-10-01] MEDS: GABAPENTIN 300 MG CAPSULE PO SCH ×4 (08:13→20:19)
[2022-10-01] MEDS: PROPRANOLOL HCL 10 MG TABLET PO SCH ×3 (08:13→16:56)
[2022-10-01] MEDS: TraZODone HCL 50 MG TABLET PO SCH (20:19)
[2022-10-01] MEDS: LITHIUM CARBONATE 300 MG CAPSULE PO SCH (20:19)
[2022-10-01 21:53] VITALS: BP 115/73
[2022-10-02] MEDS: PROPRANOLOL HCL 10 MG TABLET PO SCH ×3 (08:58→16:30)
[2022-10-02] MEDS: BENZTROPINE MESYLATE 1 MG TABLET PO SCH ×2 (08:58→16:29)
[2022-10-02] MEDS: GABAPENTIN 300 MG CAPSULE PO SCH ×4 (08:58→20:40)
[2022-10-02 09:08] VITALS: BP 110/60
[2022-10-02] MEDS: TraZODone HCL 50 MG TABLET PO SCH (20:39)
[2022-10-02] MEDS: LITHIUM CARBONATE 300 MG CAPSULE PO SCH (20:40)
[2022-10-02 23:51] VITALS: BP 108/89
[2022-10-03 08:24] VITALS: BP 116/63
[2022-10-03] MEDS: PROPRANOLOL HCL 10 MG TABLET PO SCH ×3 (08:46→16:35)
[2022-10-03] MEDS: BENZTROPINE MESYLATE 1 MG TABLET PO SCH ×2 (08:46→16:34)
[2022-10-03] MEDS: GABAPENTIN 300 MG CAPSULE PO SCH ×4 (08:46→20:25)
[2022-10-03] MEDS: TraZODone HCL 50 MG TABLET PO SCH (20:25)
[2022-10-03] MEDS: LITHIUM CARBONATE 300 MG CAPSULE PO SCH (20:25)
[2022-10-03 20:59] VITALS: BP 101/69
[2022-10-04 08:30] VITALS: BP 130/72
[2022-10-04] MEDS: PROPRANOLOL HCL 10 MG TABLET PO SCH ×3 (09:22→16:27)
[2022-10-04] MEDS: BENZTROPINE MESYLATE 1 MG TABLET PO SCH ×2 (09:23→16:27)
[2022-10-04] MEDS: GABAPENTIN 300 MG CAPSULE PO SCH ×4 (09:23→20:02)
[2022-10-04] MEDS: TraZODone HCL 50 MG TABLET PO SCH (20:02)
[2022-10-04] MEDS: LITHIUM CARBONATE 300 MG CAPSULE PO SCH (20:02)
[2022-10-04 20:03] VITALS: BP 119/67
[2022-10-05] MEDS: BENZTROPINE MESYLATE 1 MG TABLET PO SCH (08:30)
[2022-10-05] MEDS: PROPRANOLOL HCL 10 MG TABLET PO SCH ×2 (08:30→13:17)
[2022-10-05] MEDS: GABAPENTIN 300 MG CAPSULE PO SCH ×2 (08:30→13:17)
[2022-10-05 08:40] VITALS: BP 113/70
[2022-10-05] MEDS ORDERED: BENZ1TAB96 PO (14:54)
[2022-10-05] MEDS ORDERED: PROP10TA72 PO (14:54)
== END 2022-10-05 16:24 | disposition home or self-care (01) | DRG 885 ==
LOC: EMS 12:27 → B2X 19:27 → UNDOADMIN 19:27
PROVIDERS: ADMIT Psychiatry & Neurology Psychiatry; ATTEND Psychiatry & Neurology Psychiatry
DX: F25.9 Schizoaffective disorder, unspecified (principal); R45.851 Suicidal ideations; E78.5 Hyperlipidemia, unspecified; F41.9 Anxiety disorder, unspecified; G40.909 Epilepsy, unspecified, not intractable, without status epilepticus; Z20.822 Contact with and (suspected) exposure to COVID-19; G47.00 Insomnia, unspecified; I10 Essential (primary) hypertension; K59.00 Constipation, unspecified; F31.9 Bipolar disorder, unspecified
CPT/HCPCS: 80053; 80178; 85025; 99285; G0480